=== PATIENT | male | born 1960 | race Caucasian/White ===

== ENCOUNTER 2018-06-05 16:44 | Inpatient (IN) | payer MEDICAID ==
[~2018-06-05] VITALS: Ht 167.6 cm; Wt 72.6 kg
[2018-06-05 18:08] LABS: PLATELET COUNT 204 x10^3mcL (130-400); RED CELL DISTRIBUTION WIDTH 18.2 % (11.5-14.5)
[2018-06-05 18:13] LABS: CALCIUM 8.9 mg/dL (8.5-10.1); CHLORIDE SERUM 99 mmol/L (98-107); GFR1 > 60 mL/min; GLUCOSE SERUM 164 mg/dL (74-106); POTASSIUM SERUM 3.4 mmol/L (3.5-5.1); SODIUM SERUM 133 mmol/L (136-145)
[2018-06-05 18:18] LABS: ALKALINE PHOSPHATASE 98 U/L (46-116); ALT/SGPT 21 U/L (16-63); BILIRUBIN TOTAL 0.72 mg/dL (0.20-1.00); TOTAL PROTEIN, SERUM 7.8 g/dL (6.4-8.2)
[2018-06-05 18:28] LABS: AST/SGOT 10 U/L (15-37)
[2018-06-05 18:39] LABS: C REACTIVE PROTEIN 20.5 mg/dL (<=0.9)
[2018-06-05 19:25] LABS: PHOSPHOROUS 3.6 mg/dL (2.5-4.9)
[2018-06-05 20:05] LABS: FREE T4 1.35 ng/dL (0.76-1.46); FREE THYROXINE INDEX 2.9 ug/dL (1.4-4.5); T4(THYROXINE) 7.5 ug/dL (4.7-13.3)
[2018-06-05 20:16] LABS: ERYTHROCYTE SED RATE 80 mm/hr (0-20)
[2018-06-05 20:18] VITALS: BP 145/92
[2018-06-06 05:36] VITALS: BP 150/88
[2018-06-06 06:07] LABS: microscopic required? NO
[2018-06-06 06:44] LABS: UA SPECIFIC GRAVITY 1.015 (1.005-1.035); urine erythrocyte NEGATIVE (NEGATIVE)
[2018-06-06 07:48] VITALS: BP 150/83
[2018-06-06 09:30] VITALS: BP 147/81
[2018-06-06 11:40] VITALS: BP 148/88
[2018-06-06 16:00] VITALS: BP 134/81
[2018-06-06 16:34] LABS: BASOPHIL % 0.6 % (0-2); PLATELET COUNT 216 x10^3mcL (130-400); RED CELL DISTRIBUTION WIDTH 17.4 % (11.5-14.5)
[2018-06-06 16:39] LABS: CALCIUM 8.4 mg/dL (8.5-10.1); CARBON DIOXIDE 26.8 mmol/L (21-32); CHLORIDE SERUM 100 mmol/L (98-107); CREATININE SERUM 0.9 mg/dL (0.7-1.3); GFR1 > 60 mL/min; GLUCOSE SERUM 161 mg/dL (74-106); MAGNESIUM 1.9 mg/dL (1.8-2.4); PHOSPHOROUS 3.6 mg/dL (2.5-4.9); POTASSIUM SERUM 4.1 mmol/L (3.5-5.1); SODIUM SERUM 132 mmol/L (136-145)
[2018-06-06 21:30] VITALS: BP 139/81
[2018-06-07 05:37] VITALS: BP 148/94
[2018-06-07 05:42] LABS: BASOPHIL % 0.5 % (0-2); PLATELET COUNT 214 x10^3mcL (130-400)
[2018-06-07 05:46] LABS: RED CELL DISTRIBUTION WIDTH 17.8 % (11.5-14.5)
[2018-06-07 05:53] LABS: CALCIUM 8.7 mg/dL (8.5-10.1); CHLORIDE SERUM 96 mmol/L (98-107); CREATININE SERUM 0.8 mg/dL (0.7-1.3); GFR1 > 60 mL/min; GLUCOSE SERUM 99 mg/dL (74-106); MAGNESIUM 1.9 mg/dL (1.8-2.4); PHOSPHOROUS 4.2 mg/dL (2.5-4.9); SODIUM SERUM 137 mmol/L (136-145)
[2018-06-07 08:30] VITALS: BP 136/75
[2018-06-07 10:50] VITALS: BP 134/65
[2018-06-07 17:00] VITALS: BP 142/91
[2018-06-07 20:01] VITALS: BP 130/79
[2018-06-08 06:02] VITALS: BP 159/98
[2018-06-08 06:39] LABS: BASOPHIL % 0.7 % (0-2); PLATELET COUNT 243 x10^3mcL (130-400)
[2018-06-08 06:56] LABS: RED CELL DISTRIBUTION WIDTH 17.6 % (11.5-14.5)
[2018-06-08 07:03] LABS: CALCIUM 8.5 mg/dL (8.5-10.1); CARBON DIOXIDE 24.8 mmol/L (21-32); CHLORIDE SERUM 106 mmol/L (98-107); CREATININE SERUM 0.9 mg/dL (0.7-1.3); GFR1 > 60 mL/min; GLUCOSE SERUM 104 mg/dL (74-106); MAGNESIUM 1.8 mg/dL (1.8-2.4); PHOSPHOROUS 3.9 mg/dL (2.5-4.9); SODIUM SERUM 143 mmol/L (136-145)
[2018-06-08 08:32] VITALS: BP 154/96
[2018-06-08 14:48] VITALS: Ht 167.6 cm; Wt 72.6 kg
[2018-06-08 17:30] VITALS: BP 151/100
[2018-06-08 20:44] VITALS: BP 147/92
[2018-06-09 04:45] VITALS: BP 159/98
[2018-06-09 07:45] LABS: BASOPHIL % 0.7 % (0-2); PLATELET COUNT 273 x10^3mcL (130-400)
[2018-06-09 07:48] LABS: RED CELL DISTRIBUTION WIDTH 18.3 % (11.5-14.5)
[2018-06-09 07:51] LABS: CHLORIDE SERUM 104 mmol/L (98-107); GFR1 > 60 mL/min; GLUCOSE SERUM 109 mg/dL (74-106); SODIUM SERUM 143 mmol/L (136-145)
[2018-06-09 08:23] VITALS: BP 155/91
[2018-06-09 17:40] VITALS: BP 155/99
[2018-06-09 20:46] VITALS: BP 140/89
[2018-06-10 05:02] VITALS: BP 153/89
[2018-06-10 10:03] VITALS: BP 146/89
[2018-06-10] MEDS ORDERED: ZES5 PO (12:51)
[2018-06-10] MEDS ORDERED: ECO81 PO (12:51)
[2018-06-10] MEDS ORDERED: BG FS (12:51)
[2018-06-10] MEDS ORDERED: LIPI20 PO (12:51)
[2018-06-10] MEDS ORDERED: HUMULIN R100 U/1 M1 SC (12:51)
[2018-06-10] MEDS ORDERED: DEXPF IV (12:51)
[2018-06-10] MEDS ORDERED: VANCOMYCIN PER PHARM MC (12:53)
[2018-06-10] MEDS ORDERED: ROC1I IM (12:53)
[2018-06-10] MEDS ORDERED: VANCOMYCIN750 MG/150 IV (12:54)
[2018-06-10 14:39] VITALS: BP 146/89
== END 2018-06-10 17:40 | DRG 380 ==
LOC: ED 16:44 → MU 18:44 → EDBEDREQ 18:52 → MU 19:49
PROVIDERS: Family Medicine; Specialist
DX: E11.621 Type 2 diabetes mellitus with foot ulcer (principal); L97.529 Non-pressure chronic ulcer of other part of left foot with unspecified severity; L97.421 Non-pressure chronic ulcer of left heel and midfoot limited to breakdown of skin; D68.69 Other thrombophilia; E11.40 Type 2 diabetes mellitus with diabetic neuropathy, unspecified; E11.51 Type 2 diabetes mellitus with diabetic peripheral angiopathy without gangrene; E11.65 Type 2 diabetes mellitus with hyperglycemia; L97.511 Non-pressure chronic ulcer of other part of right foot limited to breakdown of skin; L03.115 Cellulitis of right lower limb; E44.1 Mild protein-calorie malnutrition; E87.1 Hypo-osmolality and hyponatremia; B95.62 Methicillin resistant Staphylococcus aureus infection as the cause of diseases classified elsewhere; B96.4 Proteus (mirabilis) (morganii) as the cause of diseases classified elsewhere; B87.1 Wound myiasis; B35.1 Tinea unguium; L60.2 Onychogryphosis; E87.6 Hypokalemia; I10 Essential (primary) hypertension; Z16.24 Resistance to multiple antibiotics; Z59.0 Homelessness; Z99.3 Dependence on wheelchair; Z68.25 Body mass index [BMI] 25.0-25.9, adult
CPT/HCPCS: 82962; 83880; 84439; 97110-GP; 97116-GP; 97530-GP; J0690; J0696; J1644; J2543; J3370; J3490; J7030; Q0092